=== PATIENT | male | born 1965 | race Caucasian/White ===

== ENCOUNTER 2016-03-14 21:41 | Emergency (ER) | payer OTHER ==
[~2016-03-14] VITALS: Ht 180.3 cm; Wt 83.5 kg
[2016-03-14 22:11] VITALS: BP 161/90
[2016-03-14] MEDS ORDERED: BACITRACIN ZIN1 EACH TOPIC (22:37)
[2016-03-14] MEDS ORDERED: NORCO 5-325 TA1 EACH ORAL (22:37)
[2016-03-14] MEDS ORDERED: IBUPROFEN600 MG ORAL (22:37)
--- NOTE | 2016-03-14 23:10 | Emergency Room Report ---
History of Present Illness General Chief Complaint: Laceration Source: Patient Present Illness HPI Patient is a 50-year-old male presented after increased pain to his left hand. The patient reportedly was lifting a keg at work and dropped the keg cutting his finger. 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 Patient presented for laceration. He was noted to have pulsatile bleeding. He reported having some numbness tip of his finger. Allergies: Coded Allergies: No Known Allergies (Unverified , 03/14/16) Patient History Past Medical History: see triage record Reviewed Nursing Documentation: PMH: Agreed, PSxH: Agreed Nursing Documentation-PMH Past Medical History: No Stated History Review of Systems All Other Systems: negative except mentioned in HPI Physical Exam Vital Signs Date Time Temp Pulse Resp B/P Pulse Ox O2 Delivery O2 Flow Rate FiO2 03/14/16 21:45 97.5 73 18 161/90 97 Room Air Sp02 EP Interpretation: reviewed, normal General Appearance: normal inspection, well appearing, no apparent distress, alert, GCS 15 Head: atraumatic ENT: normal ENT inspection, hearing grossly normal, normal voice Neck: normal inspection, full range of motion, supple, no bony tend Respiratory: normal inspection, lungs clear, normal breath sounds, no respiratory distress, no retraction, no wheezing Cardiovascular #1: regular rate, rhythm, no edema Gastrointestinal: normal inspection, normal bowel sounds, non tender, soft, no guarding, no hernia Genitourinary: no CVA tenderness Musculoskeletal: normal inspection, back normal, normal range of motion Neurologic: normal inspection, alert, oriented x3, responsive, speech normal Psychiatric: normal inspection, judgement/insight normal, mood/affect normal Skin: normal color, no rash, laceration - 1 cm laceration left index finger flap Procedures Laceration/Wound Repair Laceration/Wound Repair : Consent: Verbal Wound Location: upper extremity Wound's Depth, Shape: flap Wound Length (cm): 1 Wound Explored: clean Betadine Prep?: Yes Volume Anesthetic (ccs): 1 Wound Debrided: minimal Wound Repaired With: sutures Suture Size/Type: 5:0 Number of Sutures: 3 Sterile Dressing Applied?: Yes Patient Tolerated: Well Complications: None Medical Decision Making Diagnostic Impression: Primary Impression: Laceration Additional Impressions: Digital nerve injury Laceration of digital artery ER Course Patient presented for laceration. Differential diagnoses included foreign body , nerve injury, arterial injury among others. X-ray imaging of the left hand two-view interpreted by me showed normal bony alignment without of foreign body there is no evident fracture. Wound is irrigated and sutured with 5-0 nylon suture. A sterile dressing was applied. Patient was advised to have wound rechecked in 3 days. Suture removal is to occur within 10-14 days. The patient was placed on light duty. He is not to use his left hand at work and is to keep a dry dressing on his finger Last Vital Signs Date Time Temp Pulse Resp B/P Pulse Ox O2 Delivery O2 Flow Rate FiO2 03/14/16 22:11 97.5 73 18 161/90 97 Room Air Status: improved Disposition: HOME, SELF-CARE Condition: Stable Scripts Ibuprofen* (MOTRIN*) 600 Mg Tablet 600 MG ORAL Q8H Y for For Pain, #30 TAB 0 Refills Prov: Rafael Sanders 03/14/16 Hydrocodone Bit/Acetaminophen 5-325* (NORCO 5-325*) 1 Each Tablet 1 TAB ORAL Q6H Y for For Pain, #10 TAB 0 Refills Prov: Rafael Sanders 03/14/16 Bacitracin Zinc* (BACITRACIN ZINC*) 1 Each Packet 1 APPLIC TOPIC THREE TIMES A DAY, #30 PACKET Prov: Rafael Sanders 03/14/16 Referrals: LISA HERRERA (PCP) Patient Instructions: Laceration Care, Adult Rafael Sanders Mar 14, 2016 23:10
[2016-03-14 23:32] VITALS: BP 161/90
--- NOTE | 2016-03-15 09:10 | Diagnostic Imaging Report ---
Indication: Left finger laceration Technique: Left fingers 3 views Comparison: None Findings: There is no acute fracture or dislocation. Soft tissue injury is noted of the second digit without radiopaque foreign body. Impression: Soft tissue injury of the second digit without fracture or radiopaque foreign body.
== END 2016-03-14 23:30 | disposition home or self-care (01) ==
LOC: EMR 21:59
DX: S61.211A Laceration without foreign body of left index finger without damage to nail, initial encounter (principal); S64.491A Injury of digital nerve of left index finger, initial encounter; W45.8XXA Other foreign body or object entering through skin, initial encounter; Y92.69 Other specified industrial and construction area as the place of occurrence of the external cause; Y99.0 Civilian activity done for income or pay